=== PATIENT | male | born 1995 ===

== ENCOUNTER 2019-05-09 12:33 | Emergency (ER) | payer OTHER ==
[~2019-05-09] VITALS: Ht 182.9 cm; Wt 86.2 kg
[~2019-05-09 12:33] MED LIST: AZITHROMYCIN500 MG; CEPACOL SORE T1 EAC1
== END 2019-05-09 15:42 | disposition home or self-care (01) ==
LOC: ER 12:33
DX: K04.7 Periapical abscess without sinus (principal); K13.0 Diseases of lips